=== PATIENT | male | born 1990 | race Caucasian/White ===

== ENCOUNTER 2023-09-28 09:29 | Outpatient (OUT) | payer OTHER, SELFPAY ==
--- NOTE | 2023-09-28 | CT_ITS ---
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 TECHNIQUE: Axial images of 1 mm were obtained from the base of the skull to vertex without contrast with coronal and sagittal reconstruction. Dose reduction techniques were achieved by using automated exposure control and/or adjustment of mA and/or kV according to patient size and/or use of iterative reconstruction technique. FINDINGS: A retention cyst within the right maxillary sinus is noted. The remainder of paranasal sinuses are clear. There is is bilateral pneumatization of the supraorbital anterior ethmoidal air cells. The frontal and sphenoethmoidal recesses are patent. No abnormality of bilateral maxillary ostium and ethmoidal infundibulum is noted. The lamina papyracea is unremarkable bilaterally. No Katlin bullosa is noted. There is no septal deviation. The carotid arteries have normal intracranial pathway. The fovea ethmoidalis is symmetric. No pneumatization of anterior clinoid process is noted. The olfactory fossa measures 3 mm . The optic nerves show bone coverage. There is no suspicious osteolytic or osteoblastic lesion. The visualized portions of orbits and mastoid air cells are unremarkable. No suprahyoid lymphadenopathy is noted. CT/CT sinus wo con IMPRESSION: Right maxillary retention cyst. Electronically authenticated by: SARAH MARTÍNEZ Date: 09/29/2023 08:53
== END 2023-09-28 09:30 | disposition home or self-care (01) ==
LOC: CT 09:29
PROVIDERS: PCP Otolaryngology; Visit Provider Otolaryngology
DX: J34.89 Other specified disorders of nose and nasal sinuses (principal); J34.1 Cyst and mucocele of nose and nasal sinus
CPT/HCPCS: 70486